=== PATIENT | male | born 1935 | race Caucasian/White ===

== ENCOUNTER 2016-12-07 14:31 | Observation (INO) | payer MEDICARE, BC ==
[~2016-12-07] VITALS: Ht 180.3 cm; Wt 82.5 kg
--- NOTE | ~2016-12-07 | HP ---
History And Physical [place] [id number] [facility] [place]. [address] NAME: AL BENITEZ : 33 STATUS : ADM Serena PAT#: [id number] AGE: 81 ADM/REG DATE : 12/07/16 MR#: [id number] REPORT SERV DATE: 12/08/16 DICTATED BY: PALMIRA CRUZ DATE: 12/07/16 REPORT STATUS : Draft TRANSCRIBED BY: MODL DATE: 12/07/16 DATE OF ADMISSION: 12/07/[address] Amato, also sees Dr. Khai Mcclure for his neurology needs. This is a direct admission from Dr. Jeancarlos Amato's office. CHIEF COMPLAINT: Ataxia. 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, who has a known history of paroxysmal atrial fibrillation, last diagnosed 2008, had a Holter apparently months ago that was negative. This is a 48 hour for any tachyarrhythmia. He is on aspirin and Plavix for history of stroke in the past. History of ocular migraines, hyperlipidemia, COPD, GERD, benign paroxysmal positional vertigo with relief from Antivert as an outpatient Gonzales maneuver, peripheral neuropathy, unclear etiology, aortic sclerosis, no stenosis, history of hepatitis B core antibody, no infection, surgical history of TURP, left shoulder surgery, right knee surgery, left knee surgery, right hip surgery. The patient comes in as a request from Dr. Amato for persistent ataxia, more notably the last since Wednesday it is differentiated from his normal benign paroxysmal positional vertigo. It is actually somewhat responsive to Antivert, but has more of a foggy head type of symptom and has no nystagmus. Per the patient, he did have only one episode of nystagmus during this time, he thought it may have been subacute vertigo on top of potential cerebellar pathology. The patient denies fevers, chills. No neck stiffness. No nausea. No vomiting. No diarrhea. No chest pain. No chest pressure. No new shortness of breath. No focal neurological symptoms. No weakness. No decreased sensation, out of proportion to his normal. The patient was going to Dr. Jeancarlos Amato's office today, was got up quickly from a sitting position and became very foggy in the head and unsteady, had a wide-based gait, had to hang onto a guard rail which he has never had to do before. He stated over the weekend he has been taking Antivert with only some improvement but not to the same type of improvement he has typically with the addition of an Gonzales maneuver that has helped his benign paroxysmal positional vertigo. States he is faithful with his medications. The patient is a retired supply chain assistant. PAST MEDICAL HISTORY: See above. PAST SURGICAL HISTORY: See above. ALLERGIES: NO KNOWN DRUG ALLERGIES. HOME MEDICATIONS: See MAY. Continue what is relevant. History And Physical [address] [address] NAME: AL BENITEZ : 33 STATUS : ADM Serena PAT#: [id number] AGE: 81 ADM/REG DATE : 12/07/16 MR#: [id number] REPORT SERV DATE: 12/08/16 DICTATED BY: PALMIRA CRUZ DATE: 12/07/16 REPORT STATUS : Draft TRANSCRIBED BY: ED DATE: 12/07/16 REVIEW OF SYSTEMS: Ten-point review of systems done, see HPI. Otherwise, negative. Only social alcohol use. No drug use. No tobacco use. OBJECTIVE: VITAL SIGNS: Blood pressure 176/80, pulse 90, respirations 18, 98% on room air. GENERAL: No acute distress. HEENT: PERRLA. No scleral icterus. CARDIOVASCULAR: He does have a 1/6 systolic aortic murmur. No carotid bruits. Otherwise, regular rate and rhythm. RESPIRATORY: Decreased breath sounds bibasilar. No wheezes. No crackles. ABDOMEN: Nontender, nondistended. Positive bowel sounds. EXTREMITIES: No edema. No ecchymosis. NEURO: He has a normal finger-nose test. He is A and O x4/4. GCS of 15. A 5/5 power in his bilateral upper extremities. LABORATORY DATA: Labs are all pending. ASSESSMENT/PLAN: 1. Progressive ataxia. 2. "Foggy head," question presyncope. 3. Question orthostasis. He became unsteady when he quickly got up from a sitting to standing position. 4. History of paroxysmal atrial fibrillation. 5. History of hypertension. 6. History of neuropathy. 7. History of benign paroxysmal vertigo. Thank you very much for this admission. We will go ahead and place him on telemetry observation. MRI with and without if his creatinine clearance is above 60, otherwise without. We will go ahead and get an advancement of his aspirin 325, Plavix 75. Carotid ultrasound, echo evaluate left atrial dilation. If there is any indication for atrial fibrillation, substrate, risk, place him on a loop recorder as an outpatient and there is no tele events here. I saw PAC on the tele monitor. Permissive hypertension until he is ruled out. Check orthostatics tomorrow. Get a UA. Place him on high intensity Lipitor 80. Ask for Neurology to evaluate. Get records from Dr. Joshi and primary care doctor. B12, folate, RPR given this neuropathy concern. See rest of my orders. All questions answered. It took well over 60 minutes to do. Reference [employer] and [employer]. WST/MODL Palmira Sandoval History And Physical [address] [address] NAME: AL BENITEZ : 33 STATUS : ADM Serena PAT#: [id number] AGE: 81 ADM/REG DATE : 12/07/16 MR#: [id number] REPORT SERV DATE: 12/08/16 DICTATED BY: PALMIRA CRUZ DATE: 12/07/16 REPORT STATUS : Draft TRANSCRIBED BY: MODL DATE: 12/07/16 DO Anthony / [id number] CC: Palmira Cruz DO
--- NOTE | ~2016-12-07 | DS ---
Discharge Summary [facility] [address] [facility] [place]. [address] NAME: AL BENITEZ : 33 STATUS : DIS Serena PAT#: [id number] AGE: 81 ADM/REG DATE : 12/07/16 MR#: [id number] REPORT SERV DATE: 12/09/16 DICTATED BY: SD FUENTES DATE: 12/08/16 REPORT STATUS : Draft TRANSCRIBED BY: ED DATE: 12/08/16 ADMISSION DATE: 12/07/2016 DISCHARGE DATE: 12/08/2016 CONSULTATIONS: 1. Neurology, Dr. Aiden Padilla. 2. Jama Carey M.D., [facility], [facility]. DISCHARGE DIAGNOSES: 1. Vitamin B12 deficiency. 2. Left vertebral artery stenosis. 3. Hypertension. 4. Benign peripheral positional vertigo. 5. History of cerebrovascular accident. 6. Hypertension. IMAGIN. Chest x-ray, AP and lateral. Impression: No acute process. No change. The atelectasis in the right lung base has resolved. 2. MRI brain without contrast. Impression:. a. No evidence of acute infection. With left temporal small superior occipital and cerebellar infarct. b. 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 c. Loss of T2 flow void in the distal left vertebral artery suggesting short- segment occlusion or sluggish flow. 3. CTA neck. Impression:. a. Minimal atherosclerotic plaque in the carotid bulbs and carotid siphons. No evidence of significant stenosis. b. Significant disease in the left vertebral artery as reported above. c. Otherwise, no significant anterior abnormality within the neck or brain. d. Negative CT exam of the brain. HISTORY OF PRESENT ILLNESS: For detailed HPI please make reference to Dr. Koffi Cruz's dictation on 12/07/2016. In brief, this is an 81-year-old, male with medical history significant for cerebrovascular accident on aspirin and Plavix, benign paroxysmal positional vertigo on Antivert, who was admitted directly from Dr. Jeancarlos Amato's office (primary care physician) with concerns of unsteady gait, and nystagmus. PHYSICAL EXAMINATION: VITAL SIGNS: On presentation, blood pressure 176/80, pulse 90, respiratory rate 18, saturating 98% on room air. NEUROLOGY: He was alert and oriented x4. Horacio Coma Scale was 15. Strength in the upper extremities and lower extremities 5/5. LABORATORY DATA: WBC 7.2, hemoglobin 16.5, hematocrit 48.7, MCV 91.2, and platelets 191. Discharge Summary [place] [address] [place]. [address] NAME: AL BENITEZ : 33 STATUS : DIS Serena PAT#: [id number] AGE: 81 ADM/REG DATE : 12/07/16 MR#: [id number] REPORT SERV DATE: 12/09/16 DICTATED BY: SD FUENTES DATE: 12/08/16 REPORT STATUS : Draft TRANSCRIBED BY: MODL DATE: 12/08/16 Chemistry: Creatinine 1.02. BUN 19. Vitamin B12 of 200. An assessment of ataxia likely related to vitamin B12 deficiency to rule out cerebrovascular accident was made. The patient was admitted to the Hospitalist Service. HOSPITAL COURSE: Ataxia likely related to vitamin B12 deficiency. Neurology was consulted. MRA brain showed no evidence of acute infarction or hemorrhage. Noted was old left temporal small superior occipital and cerebellar infarct. CTA of the neck showed known significant disease in the left vertebral artery and minimal atherosclerotic plaque in the carotid bulb, and carotid siphons. No evidence of significant carotid stenosis noted. Per Neurology etiology of ataxia may be related to vitamin B12 deficiency; hence, the patient was started on vitamin B12 replacement therapy prior to discharge. The patient was advised to continue vitamin B12 supplement at home. Follow up with primary care physician as an outpatient. DISCHARGE MEDICATIONS: 1. Vitamin B12, 1000 mcg IM as prescribed. 2. Aspirin 81 mg p.o. daily. 3. Plavix 75 mg p.o. daily. 4. Atorvastatin 80 mg p.o. daily. 5. Coenzyme Q10, 100 mcg p.o. daily. 6. Ramipril 2.5 mg p.o. daily. 7. Symbicort two puffs inhaler p.r.n. DISCHARGE ACTIVITIES: As tolerated. DISCHARGE FOLLOWUP: 1. Follow up with primary care physician within one to two weeks of discharge. 2. Continue follow up with Cardiology as per schedule. Greater than 30 minutes was used to prepare this patient's discharge, reconcile medication, advise the patient on discharge plans and followup. CYNO/ALCIDESL Sd Fuentes MD / [id number] CC: MD Mitchel Gama M.D.
--- NOTE | ~2016-12-07 | CN ---
Consultation Report [facility] [address] [place]. [address] NAME: AL BENITEZ : 33 STATUS : ADM Serena PAT#: [id number] AGE: 81 ADM/REG DATE : 12/07/16 MR#: [id number] REPORT SERV DATE: 12/08/16 DICTATED BY: AIDEN PADILLA DATE: 12/08/16 REPORT STATUS : Draft TRANSCRIBED BY: MODL DATE: 12/08/16 NEUROLOGY CONSULTATION DATE OF CONSULTATION: 12/08/2016 REASON FOR CONSULTATION: Ataxia. HOT WALKER: Jama Carey M.D., [facility], [facility]. HOSPITALIST: Koffi Cruz DO. NEUROLOGIST: Khai Mcclure M.D. HISTORY OF PRESENT ILLNESS: The patient is an 81-year-old male, who came to the hospital at the request of Dr. Mitchel Amato and Dr. Khai Mcclure for worsening ataxia. The patient mentions that he has had a long-standing history of benign paroxysmal positional vertigo. He takes meclizine p.r.n. for this and this seems to help considerably. He has had several Gonzales maneuvers, which have also helped. However, this ataxia has been different from his typical BPPV. He has experienced some vertiginous symptoms, but this has been more of an imbalance issue. He was concerned that he may have had a posterior stroke. Dr. Benitez states that he tried doing an Gonzales maneuver and taking his meclizine, but it did not seem to help in its usual fashion. He decided to talk to Dr. Mcclure about it and it was suggested that he come into the hospital for diagnostic testing. Dr. Benitez has complained of his head feeling ""boggy" and not being able to ambulate as well as normal. In fact, he has had to hold on to his for stability. 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 PAST SURGICAL HISTORY: TURP, right rotator cuff repair, bilateral total knee arthroplasty. MEDICATIONS: Home medication list includes aspirin 81 mg daily, Lipitor 80 mg at bedtime, Symbicort 80/4.5 inhaler two puffs b.i.d., Plavix 75 mg daily, Coenzyme Q10 100 mg daily, and Altace 2.5 mg daily. ALLERGIES: NONE. SOCIAL HISTORY: The patient is and he has four children. He is a retired standard machine stitcher. He does not smoke. He quit back in 1966. He will occasionally have an alcoholic beverage and does not use illicit drugs. FAMILY HISTORY: His mother at the age of 92, she was healthy. His father from a Consultation Report [address] [place]. [address] NAME: AL BENITEZ : 33 STATUS : ADM Serena PAT#: [id number] AGE: 81 ADM/REG DATE : 12/07/16 MR#: [id number] REPORT SERV DATE: 12/08/16 DICTATED BY: AIDEN PADILLA DATE: 12/08/16 REPORT STATUS : Draft TRANSCRIBED BY: ED DATE: 12/08/16 pulmonary embolus. He has one brother who has cardiovascular disease. REVIEW OF SYSTEMS: Please refer to HPI for pertinent positives. PHYSICAL EXAMINATION: VITAL SIGNS: The patient is an 81-year-old male, who stands 5 feet 11 inches tall and weighs 182 pounds. He is afebrile, heart rate 68, respiratory rate 15, O2 saturations on room air 95%, and blood pressure 158/77. NEURO: The patient is alert, he is oriented x4, pleasant, communicates appropriately, has a bright affect. Speech is clear. Language fluent. No dysarthria. No aphasia. Pupils are 3 mm. PERRLA. He does have slight nystagmus with lateral gaze, more so to the right than the left. Vision via confrontation is full in both mckeon. No sensory deficits in the trigeminal region. No tongue deviation. Uvula midline. [id number], no ataxia. No pronator drift. Upper extremity strength is 5/5 bilaterally. No sensory deficits. Upper DTRs are 1+ bilaterally. Lower extremity strength is 5/5 bilaterally. DTRs are 1+ bilaterally. Downgoing toes. Abnormal position sense. Diminished vibratory sense from the toes to the ankle. Diminished temperature and light touch sensation from the toes to mid foot. The patient can get out of the bed. He ambulates without any difficulty. He has good locomotion. Romberg is positive. NECK: No carotid bruits, JVD, or thyromegaly. CHEST: Lung sounds are clear. CARDIAC: Regular rate and rhythm at this point with a murmur heard best in the aortic position. LABORATORY DATA: CBC is normal. BMP normal. Ammonia 25. Folate 11.6. B12 is low at 200. TSH 3.39. A1c 6.1. Urinalysis is negative for UTI. IMAGING: Chest x-ray: Atelectasis in the right lower lobe was resolved. NIH stroke scale is negative. ASSESSMENT/PLAN: 1. Ataxia, worsened since Wednesday. The patient will undergo an MRI of the brain with and without gadolinium to rule out a posterior stroke and a CTA of the head and neck with contrast to rule out vertebral basilar insufficiency. We will continue his aspirin, statin, and Plavix. 2. B12 deficiency. He will have cyanocobalamin-replaced IM. 3. Paroxysmal atrial fibrillation, he will be followed by Cardiology. 4. History of benign paroxysmal positional vertigo. 5. Suspect obstructive sleep apnea. He will undergo a polysomnography outpatient. Thank you again for including us in consultation. We will continue to follow with you. The patient's case and plan of care were discussed with my collaborating physician, Dr. Aiden Padilla. Consultation Report [address] [address] NAME: AL BENITEZ : 33 STATUS : ADM Serena PAT#: [id number] AGE: 81 ADM/REG DATE : 12/07/16 MR#: [id number] REPORT SERV DATE: 12/08/16 DICTATED BY: AIDEN PADILLA DATE: 12/08/16 REPORT STATUS : Draft TRANSCRIBED BY: ED DATE: 12/08/16 DICTATED BY: Sophia Reagan DNP, [facility] Aiden Padilla MD / [id number] CC: MD Mitchel Gama M.D.
[~2016-12-07 14:31] MED LIST: ADVAIR INH; ALTACE10 MG PO; ASAB PO; C5 PO; COQ10100 MG PO; DSS PO; LIPITOR80 MG PO; LOP25 PO; LORT7 PO; LORTAB 5 PO; MAX25 PO; VYTORIN 10/40 T1 TAB PO
[2016-12-07 15:36] LABS: BASOPHILS 0.6 %; BASOPHILS ABSOLUTE 0.04 10/3/uL (0.0-0.16); EOSINOPHILS 1.5 %; EOSINOPHILS ABSOLUTE 0.11 10/3/uL (0.0-0.53); HEMATOCRIT 48.7 % (40.0-51.0); HEMOGLOBIN 16.5 g/dL (13.6-17.8); IMMATURE GRANULOCYTES 0.1 %; IMMATURE GRANULOCYTES ABSOLUTE 0.01 10/3/uL (0.0-0.11); LYMPHOCYTES 24.3 %; LYMPHOCYTES ABSOLUTE 1.74 10/3/uL (0.67-4.30); MEAN CORPUS HGB CONC 33.9 g/dL (32.0-36.0); MEAN CORPUSCULAR HEMOGLOB 30.9 pg (26.0-34.0); MEAN PLATELET VOLUME 10.3 fL (9.2-13.0); MONOCYTES 9.1 %; MONOCYTES ABSOLUTE 0.65 10/3/uL (0.21-1.20); NEUTROPHILS 64.4 %; PLATELET COUNT 191 10/3/uL (150-400); RBC DISTRIBUTION WIDTH 13.8 % (12.0-16.0); RED CELL COUNT 5.34 10/6/uL (4.7-6.1); WHITE BLOOD CELLS 7.2 10/3/uL (4.5-10.5)
[2016-12-07 15:38] LABS: MANUAL DIFF NO %; MEAN CORPUSCULAR VOLUME 91.2 fL (80-100)
[2016-12-07 15:51] LABS: ALBUMIN 4.1 G/DL (3.5-5.0); ALKALINE PHOSPHATASE 100 U/L (45-117); BUN (BLOOD UREA NITROGEN) 19 MG/DL (6-23); CALCIUM, SERUM 9.6 MG/DL (8.5-10.4); CHLORIDE, SERUM 104 MMOL/L (96-112); CO2 (CARBON DIOXIDE) 27 MMOL/L (24-34); CREATININE 1.02 MG/DL (0.70-1.30); GFR AFRICAN AMERICAN 78 ML/MIN (>=60); GFR NON AFRICAN AMERICAN 68 ML/MIN (>=60); GLOBULIN 4.2 G/DL (2.5-4.1); GLUCOSE, SERUM 94 MG/DL (60-99); PHOSPHORUS, SERUM 3.6 MG/DL (2.5-4.5); POTASSIUM, SERUM 4.1 MMOL/L (3.5-5.3); SGOT(AST) 20 U/L (5-40); SGPT(ALT) 33 U/L (5-65); SODIUM, SERUM 138 MMOL/L (135-148); TOTAL BILIRUBIN 0.6 MG/DL (0-1.2); TOTAL PROTEIN 8.3 G/DL (6.0-8.5)
[2016-12-07] MEDS ORDERED: LIPITOR80 MG PO (15:57)
[2016-12-07] MEDS ORDERED: PLAVIX PO (15:57)
[2016-12-07] MEDS ORDERED: ALTA2.5 PO (15:57)
[2016-12-07] MEDS ORDERED: HALF81 PO (15:58)
[2016-12-07] MEDS ORDERED: CO Q-10100 MG PO (15:58)
[2016-12-07] MEDS ORDERED: SYMBICORT 80/4.1 INH INH (15:58)
[2016-12-07 22:18] LABS: B NATRIURETIC PEPTIDE (BNP) 41.3 PG/ML (< 100.0)
[2016-12-07 22:25] LABS: PROCALCITONIN <0.05 ng/mL (<0.5)
[2016-12-07 22:33] LABS: CREATININE 0.93 MG/DL (0.70-1.30); GFR AFRICAN AMERICAN 88 ML/MIN (>=60); GFR NON AFRICAN AMERICAN 76 ML/MIN (>=60); TROPONIN I <0.02 NG/ML (<0.05)
[2016-12-07 22:35] LABS: FOLATE 11.6 NG/ML (>5.2)
[2016-12-07 23:26] LABS: ASCORBIC ACID (UR NOT ORDER) NEG (NEG); BILIRUBIN, URINE NEGATIVE (NEG); KETONE, URINE NEGATIVE (NEG); LEUKOCYTE ESTERASE(NOT OR NEG (NEG); WBC (NOT ORDERED) (RFLEX) 2 (0-5)
[2016-12-08 04:58] LABS: BASOPHILS 0.6 %; BASOPHILS ABSOLUTE 0.04 10/3/uL (0.0-0.16); EOSINOPHILS ABSOLUTE 0.14 10/3/uL (0.0-0.53); HEMATOCRIT 50.5 % (40.0-51.0); HEMOGLOBIN 16.9 g/dL (13.6-17.8); IMMATURE GRANULOCYTES 0.1 %; IMMATURE GRANULOCYTES ABSOLUTE 0.01 10/3/uL (0.0-0.11); LYMPHOCYTES 34.2 %; LYMPHOCYTES ABSOLUTE 2.43 10/3/uL (0.67-4.30); MEAN CORPUS HGB CONC 33.5 g/dL (32.0-36.0); MEAN CORPUSCULAR HEMOGLOB 30.7 pg (26.0-34.0); MEAN CORPUSCULAR VOLUME 91.8 fL (80-100); MEAN PLATELET VOLUME 10.3 fL (9.2-13.0); MONOCYTES 10.6 %; MONOCYTES ABSOLUTE 0.75 10/3/uL (0.21-1.20); NEUTROPHILS 52.5 %; NEUTROPHILS ABSOLUTE 3.73 10/3/uL (2.02-8.40); PLATELET COUNT 199 10/3/uL (150-400); RBC DISTRIBUTION WIDTH 13.6 % (12.0-16.0); WHITE BLOOD CELLS 7.1 10/3/uL (4.5-10.5)
[2016-12-08 05:01] LABS: MANUAL DIFF NO %
[2016-12-08 05:09] LABS: BUN (BLOOD UREA NITROGEN) 16 MG/DL (6-23); CALCIUM, SERUM 9.2 MG/DL (8.5-10.4); CHLORIDE, SERUM 106 MMOL/L (96-112); CO2 (CARBON DIOXIDE) 27 MMOL/L (24-34); CREATININE 1.01 MG/DL (0.70-1.30); GFR AFRICAN AMERICAN 79 ML/MIN (>=60); GFR NON AFRICAN AMERICAN 68 ML/MIN (>=60); GLUCOSE, SERUM 103 MG/DL (60-99); PHOSPHORUS, SERUM 3.6 MG/DL (2.5-4.5); POTASSIUM, SERUM 4.1 MMOL/L (3.5-5.3); SODIUM, SERUM 141 MMOL/L (135-148)
[2016-12-08 07:54] LABS: GLYCOHEMOGLOBIN (HbA1c) 6.1 % (4.7-6.1)
[2016-12-08] MEDS ORDERED: B121000P IM (17:32)
[2016-12-08] MEDS ORDERED: CO Q-10100 MG PO (17:33)
== END 2016-12-08 17:44 | disposition home or self-care (01) ==
LOC: ENRESERVDT → ENRESERVTM → ENRESERV → CDU1 14:52
PROVIDERS: Internal Medicine
DX: G11.1 Early-onset cerebellar ataxia (principal); E53.8 Deficiency of other specified B group vitamins; I48.0 Paroxysmal atrial fibrillation; I10 Essential (primary) hypertension; I70.0 Atherosclerosis of aorta; H81.10 Benign paroxysmal vertigo, unspecified ear; I65.02 Occlusion and stenosis of left vertebral artery; G43.909 Migraine, unspecified, not intractable, without status migrainosus; E78.5 Hyperlipidemia, unspecified; J44.9 Chronic obstructive pulmonary disease, unspecified; K21.9 Gastro-esophageal reflux disease without esophagitis; G62.9 Polyneuropathy, unspecified; M19.90 Unspecified osteoarthritis, unspecified site; Z86.19 Personal history of other infectious and parasitic diseases; Z79.01 Long term (current) use of anticoagulants; Z86.73 Personal history of transient ischemic attack (TIA), and cerebral infarction without residual deficits; Z79.82 Long term (current) use of aspirin; Z79.899 Other long term (current) drug therapy; Z87.891 Personal history of nicotine dependence; Z96.653 Presence of artificial knee joint, bilateral; Z98.890 Other specified postprocedural states
CPT/HCPCS: 70496; 70498; 70551; 71020; 80048; 80053; 81001; 82140; 82150; 82565; 82607; 82746; 82962; 83036; 83690; 83735; 83880; 84100; 84145; 84443; 84484; 85025; 86592; 87449; 93005; 94640; A9270-GY; G0378; J3411; Q9967